=== PATIENT | female | born 1935 | race Caucasian/White ===

== ENCOUNTER 2021-09-04 11:19 | Emergency (ER) | payer OTHER, MEDICARE ==
[2021-09-04 11:52] VITALS: BMI 29.9
[2021-09-04] MEDS ORDERED: BEBTELOVIMAB (EUA) 175 MG/2 ML VIAL IVPUSH ONE (12:07)
[2021-09-04 13:42] VITALS: BP 125/65; PULSE 90; TEMP 98.1
== END 2021-09-04 14:28 | disposition home or self-care (01) ==
LOC: JCOVINFU 11:19
DX: U07.1 COVID-19 (principal)
CPT/HCPCS: 99284-25; M0222; Q0222

== ENCOUNTER 2021-09-07 15:13 | Observation (INO) | payer OTHER, MEDICARE ==
[2021-09-07 15:40] VITALS: BMI 29.7
[2021-09-07 17:42] LABS: VENOUS BASE EXCESS -2.8 mmol/L (-2-2); VENOUS O2 SATURATION 81.8 % (70-80); VENOUS PCO2 37.9 mmHg (38-52); VENOUS PH 7.379 (7.310-7.410)
[2021-09-07 17:44] LABS: BASO % 0.9 % (0-2.0); EOS % 1.9 % (0-4.5); HEMATOCRIT 37.7 % (32.4-45.2); HEMOGLOBIN 12.7 GM/dL (10.7-15.3); LYMPH % 34.2 % (8-40); MCH 29.6 pg (25.7-33.7); MCHC 33.6 g/dl (32.0-36.0); MEAN CELL VOLUME 88.1 fl (80-96); MEAN PLT VOLUME 7.3 fl (7.5-11.1); MONO % 6.8 % (3.8-10.2); NEUT % 56.2 % (42.8-82.8); PLATELET COUNT 197 10^3/uL (134-434); RBC 4.28 M/mm3 (3.60-5.2); WHITE BLOOD COUNT 7.2 K/mm3 (4.0-10.0)
[2021-09-07 18:13] LABS: ALBUMIN 3.7 g/dl (3.4-5.0); BLOOD UREA NITROGEN 13.4 mg/dL (7-18); CALCIUM 8.8 mg/dL (8.5-10.1)
[2021-09-07 18:16] LABS: CREATININE 0.6 mg/dL (0.55-1.3)
[2021-09-07 18:18] LABS: BILIRUBIN,TOTAL 0.7 mg/dL (0.2-1); TOT PROT 6.8 g/dl (6.4-8.2)
[2021-09-07] MEDS: CEFPODOXIME PROXETIL 200 MG TABLET [NF] PO ONE ×2 (20:40→21:30)
[2021-09-07] MEDS: ALBUTEROL SO4 2.5/IPRATROPIUM 0.5 INH SOL 3 ML VIAL.NEB. NEB SCH (20:41)
[2021-09-07] MEDS ORDERED: CEFTRIAXONE 1,000 MG in DEXTROSE 5%-WATER - 50 ML IVPB ONE (20:48)
[2021-09-07] MEDS ORDERED: predniSONE 20 MG TABLET (UD) PO ONE ×2 (20:49→20:50)
[2021-09-07] MEDS ORDERED: CEFTRIAXONE 1 GM/50 ML BAG ONE (21:32)
[2021-09-07] MEDS ORDERED: predniSONE 20 MG TABLET (UD) ONE (21:32)
[2021-09-07] MEDS ORDERED: metoPROLOL SUCCINATE 25 MG TAB.SR.24H (FP) ONE (22:45)
[2021-09-07] MEDS: metoPROLOL SUCCINATE 25 MG TAB.SR.24H (FP) PO SCH (22:47)
[2021-09-08] MEDS ORDERED: ALBUTEROL SO4 HFA INHALER IH PRN (00:41)
[2021-09-08] MEDS ORDERED: ALBUTEROL SO4 2.5/IPRATROPIUM 0.5 INH SOL 3 ML VIAL.NEB. NEB PRN (00:41)
[2021-09-08] MEDS ORDERED: ALBUTEROL SO4 HFA INHALER IH ONE (02:42)
[2021-09-08 02:47] VITALS: TEMP 97.7
[2021-09-08 08:42] LABS: BASO % 0.3 % (0-2.0); HEMATOCRIT 37.8 % (32.4-45.2); HEMOGLOBIN 12.8 GM/dL (10.7-15.3); LYMPH % 21.7 % (8-40); MCH 29.8 pg (25.7-33.7); MEAN CELL VOLUME 87.8 fl (80-96); MEAN PLT VOLUME 7.4 fl (7.5-11.1); MONO % 2.8 % (3.8-10.2); NEUT % 75.2 % (42.8-82.8); PLATELET COUNT 190 10^3/uL (134-434); RDW 17.4 % (11.6-15.6); WHITE BLOOD COUNT 5.8 K/mm3 (4.0-10.0)
[2021-09-08 09:04] LABS: ALBUMIN 3.5 g/dl (3.4-5.0); BLOOD UREA NITROGEN 14.9 mg/dL (7-18); CALCIUM 8.9 mg/dL (8.5-10.1)
[2021-09-08 09:05] LABS: MAGNESIUM 2.2 mg/dL (1.8-2.4)
[2021-09-08 09:07] LABS: PHOSPHOROUS 3.1 mg/dL (2.5-4.9)
[2021-09-08 09:08] LABS: BILIRUBIN,TOTAL 0.9 mg/dL (0.2-1); CREATININE 0.6 mg/dL (0.55-1.3); TOT PROT 6.4 g/dl (6.4-8.2)
[2021-09-08] MEDS: metoPROLOL SUCCINATE 25 MG TAB.SR.24H (FP) PO SCH (09:15)
[2021-09-08] MEDS ORDERED: CEFTRIAXONE 1 GM/50 ML BAG ONE (09:22)
[2021-09-08] MEDS ORDERED: metoPROLOL SUCCINATE 25 MG TAB.SR.24H (FP) ONE (09:22)
[2021-09-08] MEDS ORDERED: CEFTRIAXONE 1 GM in DEXTROSE 5%-WATER - 50 ML IVPB SCH (10:00)
[2021-09-08 14:11] LABS: EPI CELLS 15 /uL (0-25.1); HYALINE CASTS 2 /uL (0-3.1); PH,URINE 5.5 (5.0-8.0); URINE APPEARANCE TURBID; URINE BACTERIA 97 /uL (0-1359); URINE BILIRUBIN NEGATIVE (NEGATIVE); URINE COLOR DK YELLOW; URINE GLUCOSE (UA) NEGATIVE (NEGATIVE); URINE KETONE TRACE (NEGATIVE); URINE LEUK ESTERASE 3+ (NEGATIVE); URINE NITRITE NEGATIVE (NEGATIVE); URINE PROTEIN 1+ (NEGATIVE); URINE RBC 49 /uL (0-23.9); URINE UROBILINOGEN 0.2 mg/dL (0.2-1.0); URINE WBC 3963 /uL (0-25.8)
[2021-09-08 15:04] VITALS: BP 111/82; PULSE 75
== END 2021-09-08 15:30 | disposition home or self-care (01) ==
LOC: JER 15:13 → JERBED 20:55
PROVIDERS: ADMIT Hospitalist; ATTEND Internal Medicine
DX: J18.9 Pneumonia, unspecified organism (principal); U07.1 COVID-19; I25.10 Atherosclerotic heart disease of native coronary artery without angina pectoris; I44.30 Unspecified atrioventricular block; I11.9 Hypertensive heart disease without heart failure; Z95.1 Presence of aortocoronary bypass graft; Z85.3 Personal history of malignant neoplasm of breast; H91.90 Unspecified hearing loss, unspecified ear; Z86.73 Personal history of transient ischemic attack (TIA), and cerebral infarction without residual deficits; R06.2 Wheezing; E78.00 Pure hypercholesterolemia, unspecified
CPT/HCPCS: 36415; 71045-TC-FY; 71250-TC; 80053; 81003; 82803; 83615; 83735; 84100; 84484; 85025; 85379; 86140; 87070; 87077; 87086; 87205; 93005; 93010; 96365; 96366; 99291; C9803-CS; G0378; U0003; U0005